=== PATIENT | male | born 1980 | race Caucasian/White ===

== ENCOUNTER 2018-03-19 19:39 | Observation (INO) | payer BC, OTHER ==
[2018-03-19 20:16] VITALS: BMI 28.4
[2018-03-19] MEDS ORDERED: Sodium Chloride 0.9% 1,000 ML IV STA (20:28)
--- NOTE | 2018-03-19 20:46 | ED PDOC ---
Arrival/HPI - General Historian: Patient - History of Present Illness Narrative History of Present Illness (Text): 03/19/18 20:43 38 year old male, with no significant past medical history, presents to the emergency department sent from urgent care for evaluation of right-sided a bdominal pain, since this afternoon. Patient states pain feels like a gassy sensation in the RUQ. Patient informs pain worsens with deep inspiration. Patient states he took antacid since he thought the pain was gas related. Patient denies any nausea, vomiting, diarrhea, constipation, back pain, cough, urinary symptoms, cough, or any other complaints. Time/Duration: 4-6 hours Symptom Course: Unchanged <Carolyne Kevin - Last Filed: 03/20/18 00:45> <Nikita Verma - Last Filed: 03/20/18 19:39> - General Chief Complaint: Abdominal Pain Time Seen by Provider: 03/19/18 20:27 Past Medical History - Provider Review Nursing Documentation Reviewed: Yes - Infectious Disease Hx of Infectious Diseases: None - Tetanus Immunization Tetanus Immunization: Unknown - Past Medical History Past Medical History: No Previous - Psychiatric Hx Depression: No Hx Emotional Abuse: No Hx Physical Abuse: No Hx Substance Use: No - Past Surgical History Past Surgical History: No Previous - Anesthesia Hx Anesthesia: No - Suicidal Assessment Feels Threatened In Home Enviroment: No <Carolyne Kevin - Last Filed: 03/20/18 00:45> Family/Social History - Physician Review Nursing Documentation Reviewed: Yes Family/Social History: No Known Family HX Smoking Status: Never Smoked Hx Alcohol Use: No Hx Substance Use: No Hx Substance Use Treatment: No <Carolyne Kevin - Last Filed: 03/20/18 00:45> Allergies/Home Meds <Carolyne Kevin - Last Filed: 03/20/18 00:45> <Nikita Verma - Last Filed: 03/20/18 19:39> Allergies/Adverse Reactions: Allergies No Known Allergies Allergy (Verified 03/19/18 20:16) Home Medications: Home Meds Medication Instructions Recorded Confirmed No Known Home Med 11/25/13 03/19/18 Review of Systems - Physician Review All systems were reviewed & negative as marked: Yes - Review of Systems Constitutional: absent: Fatigue, Fevers Respiratory: absent: SOB, Cough Cardiovascular: absent: Chest Pain, Palpitations Gastrointestinal: Abdominal Pain (right sided abdominal pain). absent: Constipation, Diarrhea, Nausea, Vomiting Genitourinary Male: Normal Musculoskeletal: absent: Arthralgias, Back Pain Skin: absent: Rash, Pruritis Neurological: absent: Headache, Dizziness Psychiatric: absent: Anxiety, Depression <Carolyne Kevin - Last Filed: 03/20/18 00:45> Physical Exam Vital Signs Reviewed: Yes Vital Signs Temp Pulse Resp BP Pulse Ox 03/19/18 20:18 98.5 F 71 16 119/82 100 Temperature: Afebrile Blood Pressure: Normal Pulse: Regular Respiratory Rate: Normal Appearance: Positive for: Well-Appearing, Non-Toxic, Comfortable Pain Distress: None Mental Status: Positive for: Alert and Oriented X 3 - Systems Exam Head: Present: Atraumatic Conjunctiva: Present: Normal Mouth: Present: Moist Mucous Membranes Neck: Present: Normal Range of Motion Respiratory/Chest: Present: Clear to Auscultation, Good Air Exchange. No: Respiratory Distress, Accessory Muscle Use, Other (no tenderness to anterior chest) Cardiovascular: Present: Regular Rate and Rhythm, Normal S1, S2. No: Murmurs Abdomen: Present: Tenderness (RUQ tenderness), Normal Bowel Sounds, Guarding. No: Distention, Peritoneal Signs, Rebound Back: Present: Normal Inspection. No: CVA Tenderness, Midline Tenderness, Paraspinal Tenderness, Other (Back is nontender) Upper Extremity: Present: Normal Inspection. No: Cyanosis, Edema Lower Extremity: Present: Normal Inspection. No: Edema Neurological: Present: GCS=15, Speech Normal Skin: Present: Warm, Dry, Normal Color. No: Rashes Psychiatric: Present: Alert, Oriented x 3 <Carolyne Kevin T - Last Filed: 03/20/18 00:45> Vital Signs Temp Pulse Resp BP Pulse Ox 03/20/18 04:08 98.7 F 88 16 147/88 100 03/20/18 02:00 98.5 F 80 16 132/75 98 03/20/18 00:30 97.9 F 75 16 119/72 100 03/19/18 23:15 72 18 121/70 99 03/19/18 20:18 98.5 F 71 16 119/82 100 <Nikita Verma - Last Filed: 03/20/18 19:39> Medical Decision Making ED Course and Treatment: 03/19/18 20:49 Impression: 38 year old male presents with right-sided abdominal pain. Plan: -- Labs -- Urinalysis -- Complete ABD US -- Reassess and disposition Prior Visits: Notes and results from previous visits were reviewed. Progress Notes: US; The liver shows increased echogenicity without evidence of mass or defect measuring 14.6 x 11.6 cm. There is no intra or extrahepatic biliary ductal dilatation. The common bile duct measures 0.42 cm. The gallbladder is physiologically distended without evidence of calculi. The gallbladder wall is not thickened measuring 0.24 cm and there is no pericholecystic fluid. The visualized portions of abdominal aorta and inferior vena cava present no abnormalities. The visualized portions of the pancreas are unremarkable. The spleen is of uniform echo texture and does not appear enlarged measuring 11.6 x 6.88 cm. The right kidney measures 10.33 x 5.51 x 5.91 cm and the left kidney measures 10.49 x 5.1 x 5.94 cm. Both kidneys are free of hydronephrosis. The right ureter is dilated. IMPRESSION: 1. Fatty liver. 2. Dilated right ureter. 3. Consider correlation with CT. labs wnl blood cultures pending zosyn started IV. ct abd/pelvis: Findings Lower thorax Unremarkable. Liver Unremarkable. No gross lesion or ductal dilatation. Gallbladder and bile ducts Unremarkable. Pancreas Unremarkable. No gross lesion or ductal dilatation. Spleen Unremarkable. Adrenals Unremarkable. No mass. Kidneys and ureters There are bilateral extrarenal pelvis, right greater than left, however no definite evidence of hydroureter. Vasculature Unremarkable. No aortic aneurysm. Bowel There are fluid-filled thick-walled loops of small bowel present. Jejunum is especially severely involved. This is most consistent with enteritis. Appendix Appendix is mostly filled with fluid, however does contain several bubbles of air. The appendiceal wall demonstrates mild enhancement. There is suggestion of very minimal inflammatory stranding adjacent to the appendix. Early or mild appendicitis is not completely excluded. Consider additional evaluation with repeat CT after oral contrast administration. Peritoneum Unremarkable. No free fluid. No free air. Lymph nodes There are multiple small mesenteric lymph nodes present, likely reactive. Bladder Unremarkable. Reproductive Unremarkable. Prostate Gland Unremarkable. Bones There is grade I anterolisthesis of L5 over S1 measures 9 mm due to bilateral spondylolysis. Consider follow up with MRI lumbar spine on routine basis. Other Findings None. Impression 1. Appendix is mostly filled with fluid, however does contain several bubbles of air. The appendiceal wall demonstrates mild enhancement. There is suggestion of very minimal inflammatory stranding adjacent to the appendix. Early or mild appendicitis is not completely excluded. Consider additional evaluation with repeat CT after oral contrast administration. 2. Bilateral extrarenal pelvi, right greater than left, however no definite evidence of hydroureter. 3. Evidence of enteritis. Jejunum is especially severely involved. 4. Multiple small mesenteric lymph nodes, likely reactive. 5. Grade I anterolisthesis of L5 over S1 measures 9 mm due to bilateral spondylolysis. Consider follow up with MRI lumbar spine on routine basis. 03/20/18 00:[address] diane. will admit observational status to med/surg for possible early appendicitis. case discussed with surgical services director. impression; appendicitis admit observational status to med/surg dr. diane. - RAD Interpretation Radiology Orders: 03/19/18 20:27 ABDOMEN COMPLETE [US] Stat - Medication Orders Current Medication Orders: Sodium Chloride (Sodium Chloride 0.9%) 1,000 mls @ 999 mls/hr IV .Q1H1M STA Stop: 03/19/18 21:28 Discontinued Medications Ketorolac Tromethamine (Toradol) 30 mg IVP STAT STA Stop: 03/19/18 20:29 <Carolyne Kevin T - Last Filed: 03/20/18 00:45> - Lab Interpretations Lab Results: 03/19/18 21:35 03/19/18 21:35 Lab Results 03/19/18 21:35: WBC 10.5, RBC 4.91, Hgb 14.6, Hct 41.6 L, MCV 84.7, MCH 29.7, MCHC 35.1, RDW 12.6, Plt Count 174, MPV 11.6 H, Gran % 62.0, Lymph % (Auto) 29.9, [place] % (Auto) 5.5, Eos % (Auto) 2.4, Baso % (Auto) 0.2, Gran # 6.48, Lymph # (Auto) 3.1, [place] # (Auto) 0.6, Eos # (Auto) 0.3, Baso # (Auto) 0.02 03/19/18 21:35: Sodium 140, Potassium 3.8, Chloride 103, Carbon Dioxide 28, Anion Gap 13, BUN 9, Creatinine 0.9, Est GFR ( Amer) > 60, Est GFR (Non- Af Amer) > 60, Random Glucose 97, Calcium 9.5, Total Bilirubin 0.7, AST 34, ALT 54, Alkaline Phosphatase 80, Total Protein 8.1, Albumin 4.3, Globulin 3.8, Albumin/Globulin Ratio 1.1, Lipase 90 03/19/18 21:23: Urine Color Straw, Urine Appearance Clear, Urine pH 7.0, Ur Specific [place] <= 1.005, Urine Protein Negative, Urine Glucose (UA) Negative, Urine Ketones Negative, Urine Blood Negative, Urine Nitrate Negative, Urine Bilirubin Negative, Urine Urobilinogen 0.2, Ur Leukocyte Esterase Negative - RAD Interpretation Radiology Orders: 03/19/18 20:27 ABDOMEN COMPLETE [US] Stat 03/19/18 20:57 CHEST PORTABLE [RAD] Stat 03/19/18 21:59 ABD & PELVIS IV CONTRAST ONLY [CT] Stat - Medication Orders Current Medication Orders: Discontinued Medications Acetaminophen (Tylenol 325mg Tab) 650 mg PO Q6H PRN PRN Reason: Pain, moderate (4-7) Last Admin: 03/20/18 05:06 Dose: 650 mg MAR Pain/Vitals Document 03/20/18 05:06 [facility] (Rec: 03/20/18 05:06 [facility]) Pain Reassessment Is This A Pain ReAssessment? No Sleep Is patient sleeping during reassessment? No Presence of Pain Presence of Pain Yes Pain Scale Used Protocol: PSCALES Pain Scale Used Numeric Location Left, Right or Bilateral Right Pain Location Body Site Abdomen Description Intermittent Pain Behavior Facial Grimacing Sodium Chloride (Sodium Chloride 0.9%) 1,000 mls @ 999 mls/hr IV .Q1H1M STA Stop: 03/19/18 21:28 Last Admin: 03/19/18 21:14 Dose: 999 mls/hr eMAR Start Stop Document 03/19/18 21:14 (Rec: 03/19/18 21:14 [id number]) Intravenous Solution Start Date 03/19/18 Start Time 21:14 End Date 03/19/18 End time 22:15 Total Infusion Time 61 Piperacillin Sod/Tazobactam Sod (Zosyn 3.375 In Ns 100ml) 100 mls @ 200 mls/hr IVPB STAT STA; Protocol Stop: 03/20/18 00:52 Last Admin: 03/20/18 00:54 Dose: 200 mls/hr eMAR Start Stop Document 03/20/18 00:54 [facility] (Rec: 03/20/18 00:55 LAC [id number]) Intravenous Solution Start Date 03/20/18 Start Time 00:54 End Date 03/20/18 End time 01:30 Total Infusion Time 36 Lactated Ringer's (Lactated Ringer's) 1,000 mls @ 125 mls/hr IV .Q8H COLLEEN Last Admin: 03/20/18 02:10 Dose: 125 mls/hr eMAR Start Stop Document 03/20/18 02:10 LAC (Rec: 03/20/18 04:15 LAC [id number]) Intravenous Solution Start Date 03/20/18 Start Time 02:10 End Date 03/20/18 End time 12:00 Total Infusion Time 590 Influenza Virus Vaccine (Flucelvax Quad 6211-3298 Syr) 60 mcg IM .ONCE ONE Stop: 03/20/18 04:29 Ketorolac Tromethamine (Toradol) 30 mg IVP STAT STA Stop: 03/19/18 20:29 Last Admin: 03/19/18 21:14 Dose: 30 mg MAR Pain Assessment Document 03/19/18 21:14 (Rec: 03/19/18 21:14 [id number] Pain Reassessment Is this a pain reassessment? Yes Sleep Is patient sleeping during reassessment? No Presence of Pain Presence of Pain Yes IVP Administration Document 03/19/18 21:14 SF (Rec: 03/19/18 21:14 [id number] Charges for Administration # of IVP Administrations 1 Simethicone (Mylicon Chew Tab) 80 mg PO ONCE ONE Stop: 03/20/18 05:38 Last Admin: 03/20/18 05:47 Dose: 80 mg <Nikita Verma - Last Filed: 03/20/18 19:39> - Scribe Statement The provider has reviewed the documentation as recorded by the Naiibjordy [place] Provider Scribe Attestation: All medical record entries made by the Naiibjordy were at my direction and personally dictated by me. I have reviewed the chart and agree that the record accurately reflects my personal performance of the history, physical exam, medical decision making, and the department course for this patient. I have also personally directed, reviewed, and agree with the discharge instructions and disposition. <Carolyne Kevin - Last Filed: 03/20/18 00:45> - PA / [employer] / Resident Statement MD/DO has reviewed & agrees with the documentation as recorded. <Nikita Verma - Last Filed: 03/20/18 19:39> Disposition/Present on Arrival - Present on Arrival Any Indicators Present on Arrival: No History of DVT/PE: No History of Uncontrolled Diabetes: No Urinary Catheter: No History of Decub. Ulcer: No History Surgical Site Infection Following: None - Disposition Have Diagnosis and Disposition been Completed?: Yes Disposition Time: 23:30 Patient Plan: Observation <Carolyne Kevin - Last Filed: 03/20/18 00:45> <Nikita Verma - Last Filed: 03/20/18 19:39> - Disposition Diagnosis: Appendicitis Disposition: HOSPITALIZED Condition: FAIR
[2018-03-19 21:28] LABS: URINE BILIRUBIN NEGATIVE (NEGATIVE); URINE BLOOD NEGATIVE (NEGATIVE); URINE GLUCOSE (UA) NEGATIVE (NEGATIVE); URINE LEUKOCYTE ESTERASE NEGATIVE Leu/uL (NEGATIVE); URINE PROTEIN NEGATIVE mg/dL (<30 mg/dL); URINE UROBILINOGEN 0.2 E.U./dL (<1 E.U./dL)
[2018-03-19 21:29] LABS: URINE APPEARANCE CLEAR (CLEAR); URINE COLOR STRAW (YELLOW)
[2018-03-19 21:43] LABS: BASO # 0.02 K/mm3 (0.0-2.0); BASO % 0.2 % (0.0-3.0); EOS # 0.3 (0.0-0.7); EOS % 2.4 % (1.5-5.0); GRAN # 6.48 (1.4-6.5); HEMOGLOBIN 14.6 g/dL (14.0-18.0); LYMPH # 3.1 (1.2-3.4); LYMPH % 29.9 % (22.0-35.0); MEAN CELL VOLUME 84.7 fl (80.0-105.0); MEAN CORPUSCULAR HEMOGLOBIN 29.7 pg (25.0-35.0); MEAN CORPUSCULAR HGB CONC 35.1 g/dl (31.0-37.0); MEAN PLATELET VOLUME 11.6 fl (7.0-11.0); MONO # 0.6 (0.1-0.6); MONO % 5.5 % (1.0-6.0); RBC 4.91 10^6/uL (3.5-6.1); RED CELL DISTRIBUTION WIDTH 12.6 % (11.5-14.5); WHITE BLOOD COUNT 10.5 10^3/ul (4.5-11.0)
[2018-03-19 21:54] LABS: ALB/GLOB RATIO 1.1 (1.1-1.8); ALBUMIN 4.3 g/dL (3.0-4.8); ALT/SGPT 54 U/L (7-56); AST/SGOT 34 U/L (17-59); BLOOD UREA NITROGEN 9 mg/dL (7-21); CALCIUM 9.5 mg/dL (8.4-10.5); GFR NON-AFRICAN AMERICAN > 60; LIPASE 90 U/L (23-300)
[2018-03-19] MEDS ORDERED: Iohexol 350 MG/100 ML VIAL ONE (22:05)
[2018-03-20] MEDS ORDERED: Piperacillin/Tazobact 3.375 gm 100 ML IVPB STA (00:23)
--- NOTE | 2018-03-20 01:03 | CP.PCM.HP ---
History of Present Illness - History of Present Illness History of Present Illness: 38M with no significant past medical history presents to [facility] with complaints of right upper quadrant pain. Patient states pain began yesterday night after having a large fatty meal for dinner. Patient reports pain was illicited again this afternoon after having another large fatty meal. Patient states pain comes about 1 hour after eating large meals. At time of examination patient mentioned abdominal pain had completely resolved. He is passing flatus and having normal bowel movements. He denies anorexia, fever/chills, nausea/vomiting, diarrhea, dysuria. PMH: as stated above PSurgHx: Denies Allergies: NKDA Present on Admission - Present on Admission Any Indicators Present on Admission: No Review of Systems - Review of Systems Review of Systems: 10 pt ROS unremarkable, except as stated in HPI Past Patient History - Infectious Disease Hx of Infectious Diseases: None - Tetanus Immunizations Tetanus Immunization: Unknown - Past Social History Smoking Status: Never Smoked - PSYCHIATRIC Hx Depression: No Hx Emotional Abuse: No Hx Physical Abuse: No Hx Substance Use: No - SURGICAL HISTORY Hx Surgeries: No - ANESTHESIA Hx Anesthesia: No Meds Allergies/Adverse Reactions: Allergies Allergy/AdvReac Type Severity Reaction Status Date / Time No Known Allergies Allergy Verified 03/19/18 20:16 Physical Exam - Constitutional Appears: Well, Non-toxic, No Acute Distress - Head Exam Head Exam: NORMOCEPHALIC - Eye Exam Eye Exam: EOMI, Normal appearance - ENT Exam ENT Exam: Mucous Membranes Moist - Respiratory Exam Respiratory Exam: NORMAL BREATHING PATTERN - Cardiovascular Exam Cardiovascular Exam: +S1, +S2 - GI/Abdominal Exam GI & Abdominal Exam: Soft. absent: Distended, Firm, Guarding, Rebound, Rigid, Tenderness - Neurological Exam Neurological exam: Alert, Oriented x3 - Psychiatric Exam Psychiatric exam: Normal Mood - Skin Skin Exam: Dry, Intact, Warm Results - Vital Signs Recent Vital Signs: Last Vital Signs Temp 98.5 F 03/19/18 20:18 Pulse 72 03/19/18 23:15 Resp 18 03/19/18 23:15 BP 121/70 03/19/18 23:15 Pulse Ox 99 03/19/18 23:15 - Labs Result Diagrams: 03/19/18 21:35 03/19/18 21:35 Labs: Laboratory Results - last 24 hr 03/19/18 03/19/18 03/19/18 21:23 21:35 21:35 WBC 10.5 RBC 4.91 Hgb 14.6 Hct 41.6 L MCV 84.7 MCH 29.7 MCHC 35.1 RDW 12.6 Plt Count 174 MPV 11.6 H Gran % 62.0 Lymph % (Auto) 29.9 [place] % (Auto) 5.5 Eos % (Auto) 2.4 Baso % (Auto) 0.2 Gran # 6.48 Lymph # (Auto) 3.1 [place] # (Auto) 0.6 Eos # (Auto) 0.3 Baso # (Auto) 0.02 Sodium 140 Potassium 3.8 Chloride 103 Carbon Dioxide 28 Anion Gap 13 BUN 9 Creatinine 0.9 Est GFR ( Amer) > 60 Est GFR (Non-Af Amer) > 60 Random Glucose 97 Calcium 9.5 Total Bilirubin 0.7 AST 34 ALT 54 Alkaline Phosphatase 80 Total Protein 8.1 Albumin 4.3 Globulin 3.8 Albumin/Globulin Ratio 1.1 Lipase 90 Urine Color Straw Urine Appearance Clear Urine pH 7.0 Ur Specific [place] <= 1.005 Urine Protein Negative Urine Glucose (UA) Negative Urine Ketones Negative Urine Blood Negative Urine Nitrate Negative Urine Bilirubin Negative Urine Urobilinogen 0.2 Ur Leukocyte Esterase Negative Assessment & Plan - Assessment and Plan (Free Text) Assessment: 38M with complaints of RUQ abdominal pain CT report findings of "early acute appendicitis" Plan: Ruggiero score 0/10 - appendicitis unlikely No clinical evidence of acute appendicitis Jejunal wall thickening may suggest enteritis Will observe patient over night Patient to remain NPO over night Will reasses in AM Analgesics prn SCDs Further recs per Dr. Sal Avalos PGY3
[2018-03-20] MEDS ORDERED: Lactated Ringer's 1,000 ML IV SCH (01:30)
[2018-03-20] MEDS ORDERED: Influenza Vaccine 60 mcg/0.5 mL SYR (4YR UP) IM ONE (04:28)
[2018-03-20] MEDS ORDERED: Simethicone 80 mg Chewtab PO ONE (05:37)
--- NOTE | 2018-03-20 08:57 | CARD ---
APPROVED REPORT Date of service: 03/19/2018 EKG Measurement Heart [id number] <Conclusion> Normal sinus rhythm Normal ECG
--- NOTE | 2018-03-20 09:25 | CT ---
Date of service: 03/19/2018 PROCEDURE: CT Abdomen and Pelvis with and without intravenous contrast HISTORY: right sided abd pain COMPARISON: None. TECHNIQUE: Axial images of the abdomen were obtained in the pre contrast, portal venous and delayed phases of enhancement. Coronal and sagittal reformats were generated. Contrast dose: Radiation dose: Total exam DLP = 461.87 mGy-cm. This CT exam was performed using one or more of the following dose reduction techniques: Automated exposure control, adjustment of the mA and/or kV according to patient size, and/or use of iterative reconstruction technique. FINDINGS: LOWER THORAX: Small right pleural effusion. LIVER: Unremarkable. No gross lesion or ductal dilatation. GALLBLADDER AND BILE DUCTS: Unremarkable. PANCREAS: Unremarkable. No gross lesion or ductal dilatation. SPLEEN: Unremarkable. ADRENALS: Unremarkable. No mass. KIDNEYS AND URETERS: Unremarkable. No hydronephrosis. No solid mass. VASCULATURE: Unremarkable. No aortic aneurysm. No aortic atherosclerotic calcification or mural plaque present. BOWEL: Unremarkable. No obstruction. No gross mural thickening. APPENDIX: Normal appendix. PERITONEUM: Unremarkable. No free fluid. No free air. LYMPH NODES: Unremarkable. No enlarged lymph nodes. BLADDER: Unremarkable. REPRODUCTIVE: Unremarkable. BONES: No acute fracture. OTHER FINDINGS: Grade 1 anterolisthesis at L5-S1. IMPRESSION: Small right pleural effusion. Recommend correlation with chest CT scan.
--- NOTE | 2018-03-20 10:31 | CP.PCM.PN ---
Subjective - Date & Time of Evaluation Date of Evaluation: 03/20/18 Time of Evaluation: 10:29 - Subjective Subjective: Surgery: DR. Huang Patient denies abdominal pain, n/v/f/c. He reports hunger. Objective - Vital Signs/Intake and Output Vital Signs (last 24 hours): Temp Pulse Resp BP Pulse Ox 98.4 F 64 20 123/78 97 03/20/18 04:52 03/20/18 04:52 03/20/18 04:52 03/20/18 04:52 03/20/18 04:52 - Medications Medications: Current Medications Acetaminophen (Tylenol 325mg Tab) 650 mg PO Q6H PRN PRN Reason: Pain, moderate (4-7) Last Admin: 03/20/18 05:06 Dose: 650 mg - Labs Labs: 03/19/18 21:35 03/19/18 21:35 - Constitutional Appears: Non-toxic, No Acute Distress - Head Exam Head Exam: ATRAUMATIC, NORMOCEPHALIC - Eye Exam Eye Exam: EOMI, Normal appearance - ENT Exam ENT Exam: Mucous Membranes Moist - Respiratory Exam Respiratory Exam: NORMAL BREATHING PATTERN. absent: Respiratory Distress - Cardiovascular Exam Cardiovascular Exam: REGULAR RHYTHM. absent: Tachycardia - GI/Abdominal Exam GI & Abdominal Exam: Soft. absent: Distended, Guarding, Rigid, Tenderness, Rebound Assessment and Plan - Assessment and Plan (Free Text) Assessment: 38 y/o male w/ RUQ/R lower chest wall pain, resolved Plan: -no clinical or radiological concerns for acute appendicitis, can be d/c'd home today after tolerating reg diet -return to ER if symptoms worsen or persist -f/u with PMD, no surgical f/u indicated at this time -d/w Dr. Huang [facility] PGY4
[2018-03-20 10:45] VITALS: BP 123/78; PULSE 64; RESP 20; TEMP 98.4; O2SAT 97
--- NOTE | 2018-03-20 11:42 | US ---
Date of service: 03/19/2018 HISTORY: ruq abd pain COMPARISON: None. TECHNIQUE: Sonographic evaluation of the abdomen. FINDINGS: LIVER: Measures 14.6 cm. Diffusely increased echogenicity of the liver parenchyma. Consistent with fatty infiltration. GALLBLADDER: Unremarkable. No gallstones. COMMON BILE DUCT: Measures 4 mm. No stones. No dilatation. PANCREAS: Unremarkable as visualized. No mass. No ductal dilatation. RIGHT KIDNEY: Measures 10.3cm. Normal echogenicity. No calculus, mass, or hydronephrosis. LEFT KIDNEY: Measures 10.5cm. Normal echogenicity. No calculus, mass, or hydronephrosis. SPLEEN: Normal in size and contour. No mass. AORTA: No aneurysmal dilatation. IVC: Unremarkable. OTHER FINDINGS: None. IMPRESSION: Fatty infiltration of the liver. No evidence of cholelithiasis or cholecystitis. Otherwise unremarkable examination.
--- NOTE | 2018-03-20 13:21 | RAD ---
Date of service: 03/19/2018 HISTORY: upper abd pain COMPARISON: No prior. FINDINGS: LUNGS: No active pulmonary disease. PLEURA: No significant pleural effusion identified, no pneumothorax apparent. CARDIOVASCULAR: No aortic atherosclerotic calcification present OSSEOUS STRUCTURES: No significant abnormalities. VISUALIZED UPPER ABDOMEN: Normal. OTHER FINDINGS: None. IMPRESSION: No active disease.
== END 2018-03-20 14:13 | disposition home or self-care (01) ==
LOC: ED 19:39 → ERH 03-20 00:39 → 5RSO 03-20 04:21 → 5RNO 03-20 05:33
PROVIDERS: ADMIT Specialist; ATTEND Specialist
DX: K52.9 Noninfective gastroenteritis and colitis, unspecified (principal); K76.0 Fatty (change of) liver, not elsewhere classified; M43.16 Spondylolisthesis, lumbar region; R10.11 Right upper quadrant pain; R07.89 Other chest pain
CPT/HCPCS: 71045; 74177; 76700; 80053; 81003; 83690; 85025; 87040; 87086; 93005; 96361; 96365; 96375; 99285; G0378; J1885; J2543; J7030; J7120; Q9967